=== PATIENT | female | born 1995 | race Caucasian/White ===

== ENCOUNTER 2020-05-11 18:59 | Emergency (ER) | payer OTHER ==
[~2020-05-11] VITALS: Ht 165.1 cm; Wt 70.3 kg
[~2020-05-11 18:59] MED LIST: AMOXICILLIN 50500 MG PO; CIPROFLOXACIN500 M1 PO; NOHOMEMEDICATIONS; NORCO 5-325 TA1 EACH PO; SPRINTEC1 EACH PO
[2020-05-11 19:18] LABS: URINE BILIRUBIN NEGATIVE (Negative); URINE BLOOD NEGATIVE (Negative); URINE CLARITY CLEAR; URINE COLOR YELLOW; URINE GLUCOSE-RANDOM NEGATIVE (Negative); URINE KETONES NEGATIVE (Negative); URINE LEUKOCYTES-REFLEX NEGATIVE (Negative); URINE NITRITE-REFLEX NEGATIVE (Negative); URINE PROTEIN 1+ (Negative)
[2020-05-11 19:24] LABS: ABSOLUTE BASOPHILS 0.1 thou/uL (0.0-0.2); ABSOLUTE EOSINOPHILS 0.1 thou/uL (0.0-0.7); ABSOLUTE MONOCYTES 0.5 thou/uL (0.0-1.2); ABSOLUTE NEUTROPHILS 7.3 thou/uL (1.6-8.1); BASOPHILS 0.6 %; EOSINOPHILS 0.6 %; HEMATOCRIT 42.2 % (37.0-47.0); HEMOGLOBIN 14.4 gm/dL (12.0-15.0); LYMPHOCYTES 19.9 %; MCH 30.8 pg (26.0-34.0); MCV 90.3 fL (80.0-100.0); MONOCYTES 5.2 %; MPV 8.4 fl. (7.2-11.1); NUCLEATED RBCS 0 /100WBC; PLATELET COUNT* 283 thou/uL (150-400); POLYS 73.7 %; RBC 4.67 mil/uL (4.20-5.00); RDW-CV 12.4 % (10.5-14.5); WBC 9.9 thou/uL (4.0-11.0)
[2020-05-11 19:31] LABS: CALCIUM 8.7 mg/dL (8.5-10.1); POTASSIUM 3.4 mmol/L (3.5-5.1)
[2020-05-11 19:36] LABS: ALBUMIN 3.8 g/dL (3.4-5.0); TOTAL BILIRUBIN 0.4 mg/dL (<0.1-1.0); TOTAL PROTEIN 7.8 g/dL (6.4-8.2)
[2020-05-11 20:30] LABS: INFLUENZA A ANTIGEN Negative (Negative); INFLUENZA B ANTIGEN Negative (Negative)
[2020-05-11] MEDS ORDERED: APAP W/CODEINE1 TA2 PO (20:48)
[2020-05-11] MEDS ORDERED: ONDANSETRON ODT4 MG PO (20:48)
[2020-05-11 21:11] VITALS: BP 118/76
== END 2020-05-11 21:11 | disposition home or self-care (01) ==
LOC: M.ERS 18:59
PROVIDERS: Physician Assistant
DX: R10.9 Unspecified abdominal pain (principal); R50.9 Fever, unspecified; R11.2 Nausea with vomiting, unspecified; R19.7 Diarrhea, unspecified; Z20.822 Contact with and (suspected) exposure to COVID-19; Z79.899 Other long term (current) drug therapy; Z88.2 Allergy status to sulfonamides

== ENCOUNTER 2020-11-02 17:16 | Emergency (ER) | payer OTHER ==
[~2020-11-02] VITALS: Ht 165.1 cm; Wt 74.8 kg
[~2020-11-02 17:16] MED LIST changes: +APAP W/CODEINE1 TA2 PO; +ONDANSETRON ODT4 MG PO
[2020-11-02] MEDS ORDERED: NORCO5 PO (18:35)
[2020-11-02] MEDS ORDERED: NEOSPORIN OIN28.3 GM TOP (18:35)
[2020-11-02 18:44] VITALS: BP 138/94
== END 2020-11-02 18:44 | disposition home or self-care (01) ==
LOC: M.ERS 17:16
DX: T23.201A Burn of second degree of right hand, unspecified site, initial encounter (principal); X10.2XXA Contact with fats and cooking oils, initial encounter; Y93.89 Activity, other specified; Y92.89 Other specified places as the place of occurrence of the external cause; Y99.8 Other external cause status; Z88.2 Allergy status to sulfonamides